=== PATIENT | male | born 1995 | race Caucasian/White ===

== ENCOUNTER 2017-02-22 21:26 | Emergency (ER) | payer SELFPAY ==
[~2017-02-22] VITALS: Ht 167.6 cm; Wt 56.7 kg
[2017-02-22 21:37] VITALS: BP 133/86
--- NOTE | 2017-02-22 21:42 | NUR ---
VISION ACUITY BOTH EYE .. 20/20 ,RT EYE 20/15 , LEFT EYE 20/20
--- NOTE | 2017-02-22 21:46 | NUR ---
SENT BACK TO LOBBY FOR BED IN STABLE CONDITION.
--- NOTE | 2017-02-22 23:18 | NUR ---
PATIENT PRESENTS TO ED WITH LEFT RED EYE AND SWOLLEN, POSSIBLE WOOD CHIPS IN EYE PT DENIES N/V/D; SKIN IS PINK/WARM/DRY; AAOX4 WITH EVEN AND STEADY GAIT; LUNGS CLEAR BL; HR EVEN AND REGULAR; PT DENIES ANY FEVER, CP, SOB, OR COUGH AT THIS TIME; PATIENT STATES PAIN OF 10/10 AT THIS TIME; VSS; PATIENT POSITIONED FOR COMFORT; HOB ELEVATED; BEDRAILS UP X2; BED DOWN. ER MD MADE AWARE OF PT STATUS.
--- NOTE | 2017-02-22 23:18 | NUR ---
PT ARRIVED IN BED
[2017-02-22] MEDS ORDERED: FLUORESCEIN OPTH STRIP 1 MG OP ONE (23:20)
[2017-02-22] MEDS ORDERED: TETRACAINE HCL/PF 0.5% OPTH 4 ML BTL ONE (23:33)
--- NOTE | 2017-02-23 01:04 | NUR ---
Patient discharged with v/s stable. Written and verbal after care instructions given and explained. Patient alert, oriented and verbalized understanding of instructions. Ambulatory with steady gait. All questions addressed prior to discharge. ID band removed. Patient advised to follow up with PMD. Rx of ERYTHROMYCIN 0.5 OINT, MOTRIN 600MG, NORCO 5/325MG given. Patient educated on indication of medication including possible reaction and side effects. Opportunity to ask questions provided and answered.
[2017-02-23 01:05] VITALS: BP 122/73
== END 2017-02-23 01:04 | disposition home or self-care (01) ==
LOC: MED 21:26
DX: S05.02XA Injury of conjunctiva and corneal abrasion without foreign body, left eye, initial encounter (principal); X58.XXXA Exposure to other specified factors, initial encounter; Y93.89 Activity, other specified; Y92.89 Other specified places as the place of occurrence of the external cause; Y99.8 Other external cause status
CPT/HCPCS: 99283